=== PATIENT | female | born 1990 | race Caucasian/White ===

== ENCOUNTER 2024-12-03 12:51 | Emergency (ER) | payer OTHER ==
[~2024-12-03] VITALS: Ht 162.6 cm; Wt 81.8 kg
[2024-12-03 13:09] VITALS: BP 128/80; PULSE 84; RESP 18; TEMP 98.1; O2SAT 98
[2024-12-03 13:12] LABS: COVID AG,FIA SOURCE NASAL SWAB
[2024-12-03 13:38] LABS: SARS-COV2 (COVID) ANTIGEN,FIA Negative (Negative)
[2024-12-03 13:39] LABS: INFLUENZA TYPE A NEGATIVE FOR TYPE A (NEGATIVE); INFLUENZA TYPE B NEGATIVE FOR TYPE B (NEGATIVE)
== END 2024-12-03 16:55 | disposition home or self-care (01) ==
LOC: EMS 12:51
DX: J06.9 Acute upper respiratory infection, unspecified (principal); B97.89 Other viral agents as the cause of diseases classified elsewhere; Z20.822 Contact with and (suspected) exposure to COVID-19
CPT/HCPCS: 87804; 99283